=== PATIENT | female | born 1980 | race Caucasian/White ===

== ENCOUNTER 2017-01-19 13:17 | Inpatient (IN) | payer OTHER ==
[~2017-01-19] VITALS: Ht 121.9 cm; Wt 49.6 kg
--- NOTE | 2017-01-19 13:17 | NUR ---
PT BIBRA TO ER BED 12, FOUND INSIDE A CAR W/ A QUARTER BOTTLE OF ALCOHOL IN IT. PER REPORT, PT WAS VERBALLY RESPONSIVE AND AMBULATORY. PT NOW IS NOT RESPONSIVE VERBALLY. NOTED GRIMACING. NO OBVIOUS TRAUMA NOTED. AWAITNG MD RUIZ.
--- NOTE | 2017-01-19 13:24 | NUR ---
DR HAZEL AT BEDSIDE FOR EVAL.
[2017-01-19] MEDS ORDERED: IV NS 0.9% 1,000 ML BAG IV ONE (13:30)
[2017-01-19 13:37] LABS: BASOPHILS % (AUTO) 0.3 % (0.0-2.0); EOSINOPHILS % (AUTO) 0.1 % (0.0-6.0); HEMATOCRIT 40 % (33-45); HEMOGLOBIN 13.4 g/dL (11.5-14.8); LYMPHOCYTES % (AUTO) 50.5 % (20.0-44.0); MEAN CORPUSCULAR HEMOGLOBIN 30 PG (26.0-33.0); MEAN CORPUSCULAR HGB CONC 34 g/dl (31.0-36.0); MEAN CORPUSCULAR VOLUME 90 fL (82-100); MONOCYTES # (AUTO) 0.3 /CMM (0.1-1.30); MONOCYTES % (AUTO) 5.9 % (2.0-12.0); NEUTROPHILS # (AUTO) 2.5 /CMM (1.8-8.9); NEUTROPHILS % (AUTO) 43.2 % (43.0-81.0); PLATELET COUNT (AUTO) 351 /CMM (150-450); RDW COEFFICIENT OF VARIATION 13.3 (11.5-15.0); RED BLOOD CELL COUNT(AUTO) 4.41 MIL/uL (4.0-5.2); WHITE BLOOD COUNT (AUTO) 5.9 K/uL (4.3-11.0)
[2017-01-19 13:51] LABS: CALCIUM, SERUM 8.3 mg/dL (8.5-10.1); CREATININE 0.5 mg/dL (0.6-1.3); POTASSIUM 3.2 mmol/L (3.5-5.1)
[2017-01-19 13:58] LABS: ALBUMIN 3.9 g/dL (3.4-5.0); BILIRUBIN,DIRECT 0.1 mg/dL (0.0-0.2); BILIRUBIN,TOTAL 0.2 mg/dL (0.2-1.0); TOTAL PROTEIN, SERUM 7.4 g/dL (6.4-8.2)
[2017-01-19 13:59] LABS: SALICYLATE 1.2 mg/dL (2.8-20.0)
--- NOTE | 2017-01-19 16:25 | NUR ---
TELE 120-1 SAIMA
--- NOTE | 2017-01-19 17:03 | NUR ---
REPORT GIVEN TO RAY SOUTH FOR TITA
--- NOTE | 2017-01-19 17:13 | NUR ---
RN INITIAL NOTE PATIENT RECEIVED FROM ER. AWAKE, ALERT AND ORIENTED. ABLE TO MAKE NEEDS KNOWN. NO S/S OF PAIN OR DISCOMFORT. DENIES PAIN AT THIS TIME. AMBULATORY. SKIN IS WARM AND DRY TO TOUCH. IV SITE FLUSHED, PATENT. SAFETY PRECAUTIONS IMPLEMENTED, BED IN LOCKED, LOW POSITION WITH TWO SIDE RAILS UP. CALL LIGHT WITHIN EASY REACH. WILL CONTINUE TO MONITOR
[2017-01-19 17:15] VITALS: BP 100/53
--- NOTE | 2017-01-19 19:30 | NUR ---
RN OPENING NOTES: RECEIVED PT AWAKE, ALERT AND ORIENTED. ABLE TO MAKE NEEDS KNOWN. NO S/S OF PAIN OR DISCOMFORT. DENIES PAIN AT THIS TIME. PT IS AMBULATORY. SKIN IS WARM AND DRY TO TOUCH. IV SITE ON R WRIST FLUSHED AND IS INTACT AND PATENT. SAFETY PRECAUTIONS IMPLEMENTED, BED IN LOCKED, LOW POSITION WITH TWO SIDE RAILS UP. CALL LIGHT WITHIN PT'S REACH. WILL FOLLOW UP FOR DOCTOR ORDERS. WILL CONTINUE TO MONITOR PT.
[2017-01-19 20:00] VITALS: BP 105/62
--- NOTE | 2017-01-19 20:00 | NUR ---
RN NOTES: SPOKE WITH DR. CHOUDHURY AND GOT ORDERS. ORDERS INPUTTED.
[2017-01-19] MEDS ORDERED: Potassium Chloride 20 MEQ in IV D5/ 0.9% NACL 1,000 ML IV PRN (20:30)
[2017-01-19] MEDS ORDERED: LORAZEPAM 0.5 MG TABLET PO PRN (20:30)
[2017-01-19] MEDS ORDERED: ACETAMINOPHEN 325 MG TABLET PO PRN (20:30)
[2017-01-19] MEDS: THIAMINE HCL 100 MG TABLET PO SCH (22:00)
[2017-01-19] MEDS: MULTIVITAMINS,THERAGRAN 1 UDTAB TABLET PO SCH (22:00)
[2017-01-19] MEDS: FOLIC ACID 1 MG TABLET PO SCH (22:00)
--- NOTE | 2017-01-19 23:10 | NUR ---
QUALITY IMPROVEMENT MANAGER NOTE: PT HAD 1 VOMITING EPISODE. PT BELIEVES TUNA SANDWICH DID NOT SIT WELL WITH HER. WILL CONTINUE TO MONITOR FOR ANY MORE N/V EPISODES.
[2017-01-20] VITALS: BP 116/63
--- NOTE | 2017-01-20 01:05 | NUR ---
CHEMISTRY SPECIALIST NOTE: SPOKE WITH DR. CHOUDHURY AND REPORTED OF 2 VOMITING EPISODES OF PT. GOT ORDER FOR ZOFRAN. WILL CONTINUE TO MONITOR PT.
[2017-01-20] MEDS ORDERED: ONDANSETRON HCL/PF 4 MG/2 ML VIAL ONE (01:09)
[2017-01-20] MEDS ORDERED: ONDANSETRON HCL/PF 4 MG/2 ML VIAL IV PRN (01:30)
[2017-01-20 04:00] VITALS: BP 112/64
[2017-01-20 06:36] LABS: BASOPHILS % (AUTO) 0.6 % (0.0-2.0); EOSINOPHILS % (AUTO) 1.2 % (0.0-6.0); HEMATOCRIT 34 % (33-45); HEMOGLOBIN 11.7 g/dL (11.5-14.8); LYMPHOCYTES # (AUTO) 1.5 /CMM (0.8-4.8); LYMPHOCYTES % (AUTO) 35.4 % (20.0-44.0); MEAN CORPUSCULAR HEMOGLOBIN 31 PG (26.0-33.0); MEAN CORPUSCULAR HGB CONC 34 g/dl (31.0-36.0); MEAN CORPUSCULAR VOLUME 91 fL (82-100); MONOCYTES # (AUTO) 0.4 /CMM (0.1-1.30); MONOCYTES % (AUTO) 8.9 % (2.0-12.0); NEUTROPHILS # (AUTO) 2.3 /CMM (1.8-8.9); NEUTROPHILS % (AUTO) 53.9 % (43.0-81.0); PLATELET COUNT (AUTO) 227 /CMM (150-450); RDW COEFFICIENT OF VARIATION 13.7 (11.5-15.0); RED BLOOD CELL COUNT(AUTO) 3.77 MIL/uL (4.0-5.2); WHITE BLOOD COUNT (AUTO) 4.3 K/uL (4.3-11.0)
--- NOTE | 2017-01-20 07:05 | NUR ---
RN INITIAL NOTES: PT AWAKE, ALERT AND ORIENTED. ABLE TO MAKE NEEDS KNOWN. NO S/S OF PAIN OR DISCOMFORT. DENIES PAIN AT THIS TIME. PT IS AMBULATORY. SKIN IS WARM AND DRY TO TOUCH. IV SITE ON R WRIST FLUSHED AND IS INTACT AND PATENT. SAFETY PRECAUTIONS IN PLACE, BED IN LOCKED, LOW POSITION WITH TWO SIDE RAILS UP. CALL LIGHT WITHIN REACH.RN WILL CONTINUE TO MONITOR PT.
--- NOTE | 2017-01-20 07:15 | NUR ---
RN CLOSING NOTES: ALL NEEDS WERE ATTENDED AND ANTICIPATED FOR. PT IS AWAKE AND RESTING IN BED. NO S/S OF PAIN OR DISCOMFORT AT THIS TIME. PT HAD 3 EPISODES OF VOMITING. PT IS AMBULATORY. SKIN IS WARM AND DRY TO TOUCH. IV SITE ON R WRIST FLUSHED AND IS INTACT AND PATENT. FLUIDS ARE BEING INFUSED. SAFETY PRECAUTIONS IMPLEMENTED, BED IN LOCKED, LOW POSITION WITH TWO SIDE RAILS UP. CALL LIGHT WITHIN PT'S REACH. ENDORSED TO AM NURSE FOR TITA.
[2017-01-20 07:48] LABS: ALBUMIN 3.3 g/dL (3.4-5.0); BILIRUBIN,TOTAL 0.4 mg/dL (0.2-1.0); CALCIUM, SERUM 8.1 mg/dL (8.5-10.1); CREATININE 0.5 mg/dL (0.6-1.3); POTASSIUM 3.5 mmol/L (3.5-5.1); TOTAL PROTEIN, SERUM 6.2 g/dL (6.4-8.2)
[2017-01-20 09:00] VITALS: BP 118/89
[2017-01-20] MEDS: THIAMINE HCL 100 MG TABLET PO SCH (10:09)
[2017-01-20] MEDS: FOLIC ACID 1 MG TABLET PO SCH (10:09)
[2017-01-20] MEDS: MULTIVITAMINS,THERAGRAN 1 UDTAB TABLET PO SCH (10:09)
--- NOTE | 2017-01-20 12:54 | NUR ---
RN CLOSING/DISCHARGE NOTE: PT STILL AWAKE, ALERT AND ORIENTED. ABLE TO MAKE NEEDS KNOWN. NO S/S OF PAIN OR DISCOMFORT NOTED . DENIES PAIN AT THIS TIME OR SOB AT THIS TIME . PT IS AMBULATORY. SKIN IS WARM AND DRY TO TOUCH. IV REMOVED MINOR BLEEDING AT SITE NOTED. DISCHARGE PAPERWORK REVIEWED WITH THE PATIENT ACKNOWLEDGEMENT GIVEN FOR UNDERSTANDING. PT STATES SHE HAS TRANSPORTATION POST DISCHARGE. ESCORT SERVICE ATTENDANT WILL WALK THE PATIENT OUT TO ENSURE SAFETY
== END 2017-01-20 12:57 | disposition home or self-care (01) | DRG 775 ==
LOC: ER 13:18 → TELE1 16:31
PROVIDERS: ADMIT Internal Medicine; ATTEND Internal Medicine
DX: F10.229 Alcohol dependence with intoxication, unspecified (principal); Q77.4 Achondroplasia; F32.9 Major depressive disorder, single episode, unspecified; E86.0 Dehydration; E87.6 Hypokalemia; Y90.8 Blood alcohol level of 240 mg/100 ml or more
CPT/HCPCS: 36415; 80048-TC; 80053-TC; 80076-TC; 84702-TC; 85025-TC; A4606; G0480; J2405; J3480; J7030; J7042; Z7610